=== PATIENT | male | born 1985 | race Caucasian/White ===

== ENCOUNTER 2021-10-29 13:09 | Emergency (ER) | payer OTHER, SELFPAY ==
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
[2021-10-29 13:12] VITALS: BP 149/86; PULSE 89; RESP 16; TEMP 36.7; O2SAT 97
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
== END 2021-10-29 15:45 | disposition home or self-care (01) ==
PROVIDERS: Emergency Provider Nurse Practitioner Family
DX: S01.511A Laceration without foreign body of lip, initial encounter (principal); S61.214A Laceration without foreign body of right ring finger without damage to nail, initial encounter; Z87.442 Personal history of urinary calculi; V49.40XA Driver injured in collision with unspecified motor vehicles in traffic accident, initial encounter
CPT/HCPCS: 12001; 70450; 70486; 72125; 73130; 99284

== ENCOUNTER 2024-05-04 21:25 | Emergency (ER) | payer OTHER, SELFPAY ==
[2024-05-04] VITALS (16 sets, daily range): BP systolic 136–150; BP diastolic 85–101; PULSE 73; RESP 14; TEMP 36.8; O2SAT 93–100
--- NOTE | ~2024-05-04 | CT_ITS ---
EXAMINATION: CT abdomen pelvis wo con DATE: 05/04/2024 22:04 INDICATION: L flank pain, hx stones TECHNIQUE: Computed tomography (CT) of the abdomen and pelvis was performed without intravenous contr ast. Automated exposure control and iterative reconstruction technique were employed. The dose-length product was 462.91 mGy-cm. COMPARISON: None. FINDINGS: Lower thorax: Mild bilateral gynecomastia. Liver: Normal. Biliary/Gallbladder: Gallbladder is normal. No bile duct dilation. Pancreas: No mass or duct dilation. Spleen: Normal. Adrenals:No mass. Kidneys: 7 mm calcification at the left UPJ. Multiple bilateral nonobstructing renal calculi. No susp icious mass. Mild left pelviectasis and caliectasis GI tract: No small or large bowel dilation. Normal appendix. Mesentery/Peritoneum: No ascites, mass, or free air. Retroperitoneum: No mass. Pelvis: Prostatic calcifications. Empty urinary bladder.. Soft Tissues: Soft tissues and body wall unremarkable. Bones: No acute osseous finding. IMPRESSION: 7 mm left UPJ stone causing mild obstructive uropathy. Reviewed, dictated and finalized at location K. ASSOCIATE
--- NOTE | ~2024-05-04 | XR_ITS ---
EXAM: XR abdomen/kub 1V DATE: 05/04/2024 22:29 HISTORY: 7mm upj stone . COMPARISON: CT abdomen pelvis, same date. FINDINGS: Clear lung bases. Normal bowel gas pattern. No organomegaly. 7 mm calcification projecting over the region of the left UPJ at the level of L2. Regional bones and soft tissues normal for age. IMPRESSION: 7 mm left UPJ stone. Reviewed, dictated and finalized at location K. ACE SUPPLY BREATHING APPARATUS IMPRESSION: 7 mm left UPJ stone.
--- OUTSIDE RECORDS SUMMARY | 2024-05-04 21:27 | XMS_ITS | Patient Health Record ---
Author Organization [facility] Address [address] [place] [address] Care Team Providers Care Assistant Women'S Tennis Coach Name Role Phone Halley, Candy Unavailable [phone] Reason For Referral No Information Medications Medication SIG (Take, Route, Frequency, Duration) Notes Start Date End Date Status Ketoconazole 2 % 5 ml Externally twic e weekly for 28 day(s) 08/01/2020 Active Montelukast Sodium 10 MG 1 tablet Orally Once a day for 90 days 11/17/2020 Active Phentermine HCl 37.5 MG TAKE ONE TABLET BY MOUTH ONE TIME DAILY for 30 11/21/2020 Active Immunizations Vaccine Route Administration Date Status Comme nts Flulaval quadrivalent PFS PEDS IM Intramuscular 01/06/2020 Administered Flulaval quadrivalent PFS PEDS IM Intramuscular 01/14/2021 Administered Patient tolerated well.Nelia Villavicencio 01/21/2021 11:18:00 AM > Tubersol Mantoux ID Intradermal 03/02/2020 Administered Tubersol Mantoux ID Intradermal 03/16/2020 Administered pt . tolerated well. To be read on 03/18/2020 Plan Of Treatment No Information Insurance Providers Payer Name Payer Address Payer Phone Subscriber Number Group Number Insured Name Patient Relationship to Insured Coverage Start Date Coverage End Date [facility] [address] [place] [phone] [id number] Roger Bledsoe Self - patient is the insured Medical (General) History Surgical History Surgery Date(Month/Year) vasectomy pilonidal cystectomy ,
--- OUTSIDE RECORDS SUMMARY | 2024-05-04 21:27 | XMS_ITS | Clinical Summary ---
Author Organization [facility] Address [address] [place] [address] Care Team Providers Care Fur Repair Inspector Name Role Phone Unavailable Primary Care Provider Unavailabl e Source Comments [facility],non-owned Affiliates and Associated Physician Practices is amultiple site organization consisting of ambulatory clinics and hospital sitesin [place], [place], [place] and [place]. This disclosure is being madepursuant to the Care Everywhere program and may not contain all information available regarding this patient. Last updated 17.[facility] ([employer]) Social History Tobacco Use Types Packs/Day Years Used Date Smoking Tobacco: Never Assessed Sex and Gender Information Value Date Recorded Sex Assigned at Not on file Gender Identity Not on file Sexual Orientation Not on file Plan of Treatment Health Maintenance Due Date Last Done Comments HIV SCREENING 2000 HEPATITIS C SCREENING 07/01/2003 DTAP/TDAP/TD VACCINES (1 - Tdap) 2004 HEPATITIS B VACCINE (1 of 3 - 19+ 3-dose series) 2004 COVID-19 VACCINE ( - 2023-2 5 season) 2023 INFLUENZA VACCINE (#1) 2023 DEPRESSION SCREENING 03/17/2024 ZOSTER VACCINE (1 of 2) 07/06/2035 HIB VACCINE Aged Out No longer eligi ble based on patient's age to complete this topic HPV VACCINE Aged Out No longer eligi ble based on patient's age to complete this topic MENINGOCOCCAL (Group B) VACCINE Aged Out No longer eligible based on patient's age to complete this topic MENINGOCOCCAL VACCINE Aged Out No chuck jerald eligible based on patient's age to complete this topic PNEUMOCOCCAL VACCINE Aged Out No long er eligible based on patient's age to complete this topic
--- OUTSIDE RECORDS SUMMARY | 2024-05-04 21:27 | XMS_ITS | Patient Health Summary ---
Author Organization [facility] Address [address] [place] [address] Care Team Providers Care Powder Coat Painter Name Role Phone Unavailable Primary Care Provider Unavailabl e Note from [facility],non-owned Affiliates and Associated Physician Practices is amultiple site organization consisting of ambulatory clinics and hospital sitesin [place], [place], [place] and [place]. This disclosure is being madepursuant to the Care Everywhere program and may not contain all information available regarding this patient. Last updated 17.[facility] Social History Tobacco Use Types Packs/Day Years Used Date Smoking Tobacco: Never Assessed Sex and Gender Information Value Date Recorded Sex Assigned at Not on file Gender Identity Not on file Sexual Orientation Not on file Procedures * GROSS + MICRO EXAM(Performed 10/06/2007) * GROSS + MICRO EXAM(Performed 07/18/2005) Results * GROSS + MICRO EXAM (10/06/2007 8:10 AM CDT) Only the most recent of2 resultswithin the time period is included. Result CASE NUMBER [id number] Comment: ORDERING PHYSICIAN BART BISWAS SPECIMEN TYPE Pilonidal Cyst *CLINICAL HISTORY A 22 year old male presented with a pilonidal cyst underwent excision. SPECIMEN SOURCE Pilonidal cyst. GROSS DESCRIPTION The specimen is received in one part. Received in formalin, labeled with the patient's identification, and designated pilonidal cyst is a rubbery fragment composed of an ellipse of white skin (2.4 x 0.8 cm) and underlying, dense subcutaneous tissue up to 1.2 cm in thickness. Towards the edge of the ellipse, there is a 0.3 cm sinus. The cut surface of the subcutaneous tissue appears white- moreno. Serially sectioning reveals a red-brown, granular focus approaching to the deep cut surface. A member services representative portion is submitted in cassettes A1 and A2. HC/lw GROSSED BY CHAY CLAY M.D. *MICROSCOPIC EXAM Sections show a cystic area in the deep dermis lined by granulation tissue with acute and chronic inflammatory infiltrates. Multiple foreign body giant cells and hair shafts are present. The overlying epidermis appears acanthotic with parakeratosis. The features are those of a pilonidal cyst. READ BY CHAY CLAY M.D. DIAGNOSIS SKIN AND SUBCUTANEOUS TISSUE, SACRAL AREA, EXCISION -PILONIDAL CYST. RELEASED BY CHAY CLAY MISCELLANEOUS SAMPLES / Unknown 10/06/2007 8:10 AM CDT 10/06/2007 12:29 PM CDT Historical Provider LAB - PATHOLOGY/C YTOLOGY ORDERABLES
--- OUTSIDE RECORDS SUMMARY | 2024-05-04 21:27 | XMS_ITS | Referral Summary ---
Author Organization [facility] Address [address] [place] [address] Care Team Providers Care Lvn Home Health Name Role Phone Unavailable Primary Care Provider Unavailabl e Source Comments [facility],non-owned Affiliates and Associated Physician Practices is amultiple site organization consisting of ambulatory clinics and hospital sitesin [place], [place], [place] and [place]. This disclosure is being madepursuant to the Care Everywhere program and may not contain all information available regarding this patient. Last updated 17.[facility] Social History Tobacco Use Types Packs/Day Years Used Date Smoking Tobacco: Never Assessed Sex and Gender Information Value Date Recorded Sex Assigned at Not on file Gender Identity Not on file Sexual Orientation Not on file Plan of Treatment Not on file
--- OUTSIDE RECORDS SUMMARY | 2024-05-04 21:27 | XMS_ITS | Referral Summary ---
Author Organization [facility] Address [address] [place] [address] Care Team Providers Care Kosher Sealer Name Role Phone Maia Mendoza TREADLE CUT OFF SAW OPERATOR Unavailable [phone] Maia Mendoza NP Primary Care Provider [phone] Allergies No known active allergies Medications pantoprazole DR (PROTONIX) 40 mg EC tablet Take 1 tablet (40 mg total) by mouth daily 11/19/2022 Active sucralfate (CARAFATE) 1 gram tablet Take 1 tablet (1 g total) by mouth 4 (four) times a day 11/19/2022 Active Active Problems No known active problems Social History Tobacco Use Types Packs/Day Years Used Date Smoking Tobacco: Never Smokeless Tobacco: Never Tobacco Cessation:Counseling Given: Not Answered Personal Safety Answer Date Recorded Getting School Help Needed Not on file 02/25 Sex and Gender Information Value Date Recorded Sex Assigned at Not on file Legal Sex Male 12:16 PM CDT Gender Identity Not on file Sexual Orientation Not on file Plan of Treatment Not on file Insurance [facility] Care Teams Kosher Sealer Relationship Specialty Start Date End Date Maia Mendoza NP PCP - General Family Medicine 12/19/22 Maia Mendoza NP Nurse Practitioner Family Medicine 11/13/22
--- OUTSIDE RECORDS SUMMARY | 2024-05-04 21:27 | XMS_ITS | Clinical Summary ---
Author Organization [facility] Address [address] [place] [address] Care Team Providers Care Bmx Rider Name Role Phone Maia Mendoza METALWORKING SPECIALIST Unavailable [phone] Maia Mendoza NP Primary Care Provider [phone] Allergies No known active allergies Medications pantoprazole [...] on file Sexual Orientation Not on file Obstetrics History Plan of Treatment Health Maintenance Due Date Last Done Comments Depression Screening 1985 Hepatitis C Screening 1985 Varicella Vaccines (1 of 2 - 13+ 2-dose series) 1998 Regular Well Visit/Exam 18-64 07/06/2003 Influenza Vaccine (#1) 2023 12/17/2022, 2021 DTaP/Tdap/Td Vaccine (8 - Td or Tdap) 07/21/2031 07/20/2021, 12/17/2010, 06/26/1999, Additional history exists HPV Vaccines Aged Out No longer eligi ble based on patient's age to complete this topic Pneumococcal vaccine <65 Aged Out No longer eligible based on patient's age to complete this topic Insurance [facility] H[facility]/PPO Address: [place] [id number] Care Teams Bmx Rider Relationship Specialty Start Date End Date Maia Mendoza NP PCP - General Family Medicine 12/19/22 Maia Mendoza NP Nurse Practitioner Family Medicine 11/13/22
--- NOTE | 2024-05-04 21:46 | ED_ITS ---
HPI - Abdominal Pain General Chief Complaint: Abdominal Pain Stated Complaint: passing kidney stone Time Seen by Provider: 05/04/24 21:36 Source: patient Mode of arrival: ambulatory Limitations: no limitations History of Present Illness HPI narrative: Patient is a 38-year-old male who presents to the ED with report of left flank pain. Patient reports long history of kidney stones. States he has had pain throughout his left flank, radiating around to his L lower abdomen and occasionally into L testicle. Pain has been intermittent for the past 4 days. States pain has been more severe today. Feels similar to previous kidney stones. Has taken acetaminophen, ibuprofen, aleve today w/o improvement. Denies dysuria hematuria. Reports nausea, denies vomiting. Denies fevers. Hx lithotripsy 2019 while living in [place]. Related Data Home Medications ?Medication ?Instructions ?Recorded ?Confirmed ?Last Taken ?Type fexofenadine 180 mg tablet 180 mg PO DAILY 06/26/21 06/26/21 Unknown History montelukast 10 mg tablet 10 mg PO QHS 06/26/21 06/26/21 Unknown History Allergies Allergy/AdvReac Type Severity Reaction Status Date / Time No Known Allergies Allergy Verified 05/04/24 21:25 Review of Systems 2 Review of Systems: All systems reviewed & are unremarkable except as noted in HPI. All systems reviewed & are unremarkable except as noted in HPI and below PMFSH Past Medical History Medical History Borderline hypertension improved with weight loss, diet and exercise. Seasonal allergies Nephrolithiasis History of verrucae (wart) excision (~2006) Surgical History Surgical History H/O vasectomy (~2009) History of lithotripsy (~2019) History of excision of pilonidal cyst (~2008) Family History Family History Father Hypertension Skin cancer (melanoma) Mother Hypertension Grandparent Alcohol abuse Cerebrovascular accident Breast cancer Social History Social History Social History: Lives with family (, 2 children) Smoking status: Never smoker Alcohol intake: current Alcohol use details: rarely Substance use: never Substance use type: does not use Living arrangements: with family Occupation/Education: occupation Gender identity (if verbalized by the patient): Male Sexual Orientation (if Verbalized by the Patient): Straight or Heterosexual Agree to blood products: Yes Exam 2 Narrative: GENERAL: Mildly uncomfortable appearing, well-nourished, non-toxic, in no acute distress. HEAD: Normocephalic, atraumatic. RESPIRATORY: Airway patent, respirations nonlabored. Clear to auscultation bilaterally, no rales, rhonchi, wheezing. CARDIOVASCULAR: Regular rate and rhythm without murmurs, rubs, or gallops. ABDOMINAL: Soft, tenderness in left sided abdomen, nondistended. Normoactive BS. +CVA tenderness on L MUSCULOSKELETAL: Moves all extremities. No gross deformities. SKIN: Warm, dry, normal color. NEURO: A&O X3. Speech clear. PSYCHIATRIC: Appropriate mood and affect. Normal interaction. Course Vital Signs Vital signs: Vital Signs Temperature 98.3 F 05/04/24 21:37 Pulse Rate 73 05/04/24 21:37 Respiratory Rate 14 05/04/24 21:37 Blood Pressure 150/101 H 05/04/24 21:37 Pulse Oximetry 99 05/04/24 21:37 Temperature 98.3 F 05/04/24 21:37 Pulse Rate 73 05/04/24 21:37 Respiratory Rate 14 05/04/24 21:37 Blood Pressure 139/87 05/04/24 23:46 Pulse Oximetry 98 05/04/24 23:46 MDM - Abdominal Pain MDM Narrative Medical decision making narrative: Patient presented to ED with left flank and abdominal pain, long history of kidney stones. States pain feels similar. Vital signs are stable upon arrival. Patient is afebrile here. Laboratory studies are unremarkable. No leukocytosis. Stable kidney function. Urine with gross hematuria, no signs of infection. CT abdomen pelvis obtained and showing 7 mm left UPJ stone. Mild obstructive uropathy. Consistent with clinical picture. KUB obtained. Discussed lab and imaging findings with patient. He is still having moderate pain. Will give additional pain medicine. Will discuss with urology. Discussed case with Dr. Mojica, urology, advised patient is not a candidate for shockwave lithotripsy within 1 week of taking NSAIDs. Patient did take Aleve and ibuprofen today. Advised patient can be admitted for stent placement likely tomorrow with interval definitive stent management, otherwise can d/c home with pain medication and f/u as outpatient for further care. Discussed options with patient. Patient states pain is tolerable at this time. He does feel comfortable going home. Will prescribe oxycodone, flomax, zofran for home. Advised to continue tylenol, avoid further NSAIDs. Given office number for Urology. Advised patient to contact office tomorrow to make follow-up appointment. Given strict return precautions should symptoms worsen or he develops fevers. Patient in agreement with plan. Discharged in stable condition. Medical Records Attestation: I reviewed the patient's medical records. Lab Data Attestation: I reviewed the patient's lab results. 05/04/24 21:41 05/04/24 21:41 Labs: Lab Results 05/04/24 05/04/24 Range/Units 21:36 21:41 WBC 9.6 (4.5-10.0) K/mm3 RBC 5.25 (4.6-6.20) M/mm3 Hgb 16.4 (14.0-18.0) g/dL Hct 47.8 (42.0-52.0) % MCV 91.0 (80-100) fl MCH 31.2 (26-34) pg MCHC 34.3 (32-36) g/dl RDW 12.1 (11.5-14.5) % Plt Count 206 (150-375) k/mm3 MPV 9.3 (7.4-10.4) fl Immature Gran % (Auto) 0.6 H (0-0.5) % Neut % (Auto) 61.2 (45.5-73.1) % Lymph % (Auto) 29.1 (18.3-44.2) % Mesa % (Auto) 6.5 (2.6-8.5) % Eos % (Auto) 2.2 (0-4.4) % Baso % (Auto) 0.4 (0.2-1.2) % Lymph # (Auto) 2.78 (0.9-3.2) K/mm3 Mesa # (Auto) 0.6 (0.1-0.6) K/mm3 Eos # (Auto) 0.2 (0-0.3) K/mm3 Baso # (Auto) 0.0 (0.0-0.1) K/mm3 Abs Immat Gran (auto) 0.06 H (0.00-0.031) K/mm3 Absolute Neuts (auto) 5.8 (1.3-6.7) K/mm3 Absolute Nucleated RBC 0.000 (0.0-0.012) K/mm3 Nucleated RBC % 0.0 (0.0-0.2) % Sodium 142 (137-145) mmol/L Potassium 4.1 (3.4-5.0) mmol/L Chloride 102 (98-107) mmol/L Carbon Dioxide 30 (22-30) mmol/L Anion Gap 10 (4-12) mmol/L BUN 17 (9-20) mg/dL Creatinine 1.11 (0.7-1.3) mg/dL Estim Creat Clear Calc 78 ml/min Estimated GFR > 60 (59 - ) Glucose 100 (65-110) mg/dL Calcium 9.7 (8.4-10.2) mg/dL Total Bilirubin 0.9 (0.2-1.3) mg/dL AST 48 (17-59) U/L ALT 78 H (6-50) U/L Alkaline Phosphatase 68 (38-126) U/L Total Protein 8.0 (6.3-8.2) g/dL Albumin 4.5 (3.5-5.1) g/dL Urine Color Yellow (Yellow) Urine Appearance Cloudy H (Clear) Urine pH 6.5 (5.0-9.0) Ur Specific [place] 1.027 (1.001-1.035) Urine Protein Trace (Negative) mg/dL Urine Glucose (UA) Negative (Negative) mg/dL Urine Ketones Negative (Negative) mg/dL Ur Blood (Man) 2+ H (Negative) Urine Nitrate Negative (Negative) Urine Bilirubin Negative (Negative) Urine Urobilinogen 1.0 (<2.0) mg/dL Leukocyte Esterase Rfl Negative (Negative) GABO/UL Urine RBC 51-100 H (0-2) /hpf Urine WBC 0-5 (0-3) /hpf Ur Squamous Epith Cells None seen (Few) /hpf Urine Bacteria None seen /hpf Urine Casts 0-2 Imaging Data Attestation: I personally reviewed and interpreted this imaging study as follows: Radiologist's impression: ITS Impressions Abdomen/Pelvis CT 05/04/24 22:14 IMPRESSION: 7 mm left UPJ stone causing mild obstructive uropathy. Abdomen X-Ray 05/04/24 22:34 IMPRESSION: 7 mm left UPJ stone. Discharge Plan Discharge Clinical Impression: Calculus of proximal left ureter Patient Disposition: Home, Self-Care Condition: Stable Instructions: Antibiotic Form, Kidney Stones (ED) Additional Instructions: Call Urology office tomorrow to make follow-up appointment for further management of stone. [phone] : outpatient line for kidney stone triage Return to the ED if you experience worsening or severe pain, difficulty urinating, fevers, unable to keep down food or drink, or any other symptoms of concern. Patient Language: Ukrainian Prescriptions: New tamsulosin [Flomax] 0.4 mg capsule 0.4 mg PO DAILY Qty: 14 0RF ondansetron 4 mg tablet,disintegrating 4 mg PO Q8H PRN (Reason: nausea and vomiting) Qty: 15 0RF oxycodone 5 mg tablet 5 mg PO Q6H PRN (Reason: pain) Qty: 20 0RF No Action montelukast 10 mg tablet 10 mg PO QHS fexofenadine 180 mg tablet 180 mg PO DAILY cephalexin 500 mg capsule 500 mg PO Q12H 7 Days Qty: 14 0RF Follow-up/Referrals: Julio C Mojica MD [Physician] - (UROLOGY) Bradley Perez MD [Physician] - (UROLOGY) PHYSICIAN NOT ON STAFF,NONSTAFF [Non-Staff] - Shankar Love MD [Physician] - (UROLOGY) Time of Disposition: 00:00
--- OUTSIDE RECORDS SUMMARY | 2024-05-04 21:50 | XMS_ITS | Clinical Summary ---
Author Organization [facility] Address [address] [place] [address] Care Team Providers Care Ward Nurse Name Role Phone Unavailable Primary Care Provider Unavailabl e Source Comments [facility],non-owned Affiliates and Associated Physician Practices is amultiple site organization consisting of ambulatory clinics and hospital sitesin [place], [place], [place] and [place]. This disclosure is being madepursuant to the Care Everywhere program and may not contain all information available regarding this patient. Last updated 17.[facility] [place] Social History Tobacco Use Types Packs/Day Years [...]
--- OUTSIDE RECORDS SUMMARY | 2024-05-04 21:50 | XMS_ITS | Referral Summary ---
Author Organization [facility] Address [address] [place] [address] Care Team Providers Care Manager Product Support Name Role Phone Maia Mendoza RECTIFYING ATTENDANT Unavailable [phone] Maia Mendoza NP Primary Care Provider [phone] Allergies No known active allergies Medications pantoprazole [...] Plan of Treatment Not on file Insurance [facility] Care Teams Manager Product Support Relationship Specialty Start Date End Date Maia Mendoza NP PCP - General Family Medicine 12/19/22 Maia Mendoza NP Nurse Practitioner Family Medicine 11/13/22
--- OUTSIDE RECORDS SUMMARY | 2024-05-04 21:50 | XMS_ITS | Referral Summary ---
Author Organization [facility] Address [address] [place] [address] Care Team Providers Care Parachute Panel Joiner Name Role Phone Unavailable Primary Care Provider Unavailabl e Source Comments [facility],non-owned Affiliates and Associated Physician Practices is amultiple site organization consisting of ambulatory clinics and hospital sitesin [place], [place], [place] and [place]. This disclosure is being madepursuant to the Care Everywhere program and may not contain all information available regarding this patient. Last updated 17.[facility] Social History Tobacco Use Types Packs/Day Years Used Date Smoking Tobacco: Never Assessed Sex and Gender Information Value Date Recorded Sex Assigned at Not on file Gender Identity Not on file Sexual Orientation Not on file Plan of Treatment Not on file
--- OUTSIDE RECORDS SUMMARY | 2024-05-04 21:50 | XMS_ITS | Patient Health Summary ---
Author Organization [facility] Address [address] [place] [address] Care Team Providers Care Weed Burner Name Role Phone Unavailable Primary Care Provider Unavailabl e Note from [facility],non-owned Affiliates and Associated Physician Practices is amultiple site organization consisting of ambulatory clinics and hospital sitesin [place], [place], [place] and [place]. This disclosure is being madepursuant to the Care Everywhere program and may not contain all information available regarding this patient. Last updated 17.[facility] Social History Tobacco Use Types Packs/Day [...] approaching to the deep cut surface. A inbound sales representative portion is submitted in cassettes A1 [...]
--- OUTSIDE RECORDS SUMMARY | 2024-05-04 21:50 | XMS_ITS | Clinical Summary ---
Author Organization [facility] Address [address] [place] [address] Care Team Providers Care Automobile Accessories Installer Name Role Phone Maia Mendoza WORK FORCE ADVISOR Unavailable [phone] Maia Mendoza NP Primary Care Provider Allergies No known active allergies Medications pantoprazole [...] patient's age to complete this topic Insurance [facility] Member Subscriber Plan / Payer (Ef fective 2021-Present) Name:Ginette Roger Relation to Subscriber:Self Name:Roger Peng Payer ID:[id number] (NAIC) Type:[facility] HMO/PPO Address: [place] [id number] Care Teams Automobile Accessories Installer Relationship Specialty Start Date End Date Maia Mendoza NP PCP - General Family Medicine 12/19/22 Maia Mendoza NP Nurse Practitioner Family Medicine 11/13/22
[2024-05-04 21:51] LABS: Basophils Percent Auto 0.4 % (0.2-1.2); Eosinophils Absolute Auto 0.2 K/mm3 (0-0.3); Eosinophils Percent Auto 2.2 % (0-4.4); Hematocrit 47.8 % (42.0-52.0); Hemoglobin 16.4 g/dL (14.0-18.0); Immature Granulocyte Absolute 0.06 K/mm3 (0.00-0.031); Immature Granulocyte Percent A 0.6 % (0-0.5); Lymphocytes Absolute Auto 2.78 K/mm3 (0.9-3.2); Lymphocytes Percent Auto 29.1 % (18.3-44.2); Mean Corpuscular HGB Conc 34.3 g/dl (32-36); Mean Corpuscular Hemoglobin 31.2 pg (26-34); Mean Platelet Volume 9.3 fl (7.4-10.4); Monocytes Absolute Auto 0.6 K/mm3 (0.1-0.6); Monocytes Percent Auto 6.5 % (2.6-8.5); Neutrophils Absolute Auto 5.8 K/mm3 (1.3-6.7); Neutrophils Percent Auto 61.2 % (45.5-73.1); Platelet Count Result 206 k/mm3 (150-375); Red Blood Count 5.25 M/mm3 (4.6-6.20); Red Cell Distribution Width 12.1 % (11.5-14.5); White Blood Count 9.6 K/mm3 (4.5-10.0)
[2024-05-04 21:52] LABS: Add Urine Microscopic? YES; Appearance Urine Cloudy (Clear); Bacteria Urine None Seen /hpf; Bilirubin Urine Negative (Negative); Blood Urine 2+ (Negative); Color Urine Yellow (Yellow); Glucose Urine UA Negative (Negative); Ketones Urine Negative (Negative); Leukocyte Esterase Ur Negative LEU/UL (Negative); Nitrate Urine Negative (Negative); Non Pathogenic Casts 0-2; Protein Urine Trace mg/dL (Negative); RBC Urine 51-100 /hpf (0-2); Specific Grav Ur 1.027 (1.001-1.035); Squamous Epithelial Cell Urine None Seen /hpf (Few); WBC Urine 0-5 /hpf (0-3); pH Urine 6.5 (5.0-9.0)
[2024-05-04] MEDS: ONDANSETRON INJ 4 MG/2 ML VIAL IV PUSH (21:56)
[2024-05-04] MEDS: SODIUM CHLORIDE 0.9% IV 1,000 ML 999 ML IV CONT (21:56)
[2024-05-04] MEDS: MORPHINE SULFATE (*CRX) 4 MG/ML INJ IV PUSH (21:56)
[2024-05-04 22:01] LABS: Alanine Aminotransferase 78 U/L (6-50); Albumin Level 4.5 g/dL (3.5-5.1); Alkaline Phosphatase 68 U/L (38-126); Anion Gap 10 mmol/L (4-12); Aspartate Amino Transferase 48 U/L (17-59); Bilirubin,Total 0.9 mg/dL (0.2-1.3); Blood Urea Nitrogen 17 mg/dL (9-20); Calcium 9.7 mg/dL (8.4-10.2); Carbon Dioxide 30 mmol/L (22-30); Chloride 102 mmol/L (98-107); Estimated CRCL calculation 78 ml/min; Estimated Glomerular Filt Rate > 60; Glucose 100 mg/dL (65-110); Potassium 4.1 mmol/L (3.4-5.0); Sodium 142 mmol/L (137-145)
[2024-05-04] MEDS: TAMSULOSIN HCL 0.4 MG CAPSULE PO (23:11)
[2024-05-05] MEDS: oxyCODONE HCL (*CRX) 5 MG TAB IR PO (00:11)
== END 2024-05-05 00:14 | disposition home or self-care (01) ==
PROVIDERS: Emergency Medicine; Emergency Provider Physician Assistant
DX: R10.9 Unspecified abdominal pain (principal); N20.1 Calculus of ureter; Z87.442 Personal history of urinary calculi
CPT/HCPCS: 36415; 74018; 74176; 80053; 81001; 85025; 96361; 96374; 96375; 96376; 99284; A9270; J2270; J2405; J7030

== ENCOUNTER 2024-05-06 12:27 | Outpatient (CLI) | payer OTHER, SELFPAY ==
--- OUTSIDE RECORDS SUMMARY | 2024-05-06 12:32 | XMS_ITS | Clinical Summary ---
Author Organization [facility] Address [address] [place] [address] Care Team Providers Care Reaming Machine Operator For Plastic Name Role Phone Unavailable Primary Care Provider Unavailabl e Source Comments [facility],non-owned Affiliates and Associated Physician Practices is amultiple site organization consisting of ambulatory clinics and hospital sitesin [place], [place], [place] and [place]. This disclosure is being madepursuant to the Care Everywhere program and may not contain all information available regarding this patient. Last updated 17.[facility] [employer] Social History Tobacco Use Types Packs/Day Years [...]
--- OUTSIDE RECORDS SUMMARY | 2024-05-06 12:32 | XMS_ITS | Patient Health Record ---
Author Organization [facility] Address [address] [place] [address] Care Team Providers Care Metalworker Name Role Phone Halley, Candy Unavailable [phone] Reason For Referral No Information Medications Medication [...] Insured Coverage Start Date Coverage End Date [facility] [address] [place] [phone] [id number] Roger Bledsoe Self - patient is the insured Medical (General) History Surgical History Surgery Date(Month/Year) vasectomy pilonidal cystectomy ,
--- OUTSIDE RECORDS SUMMARY | 2024-05-06 12:32 | XMS_ITS | Patient Health Summary ---
Author Organization [facility] Address [address] [place] [address] Care Team Providers Care Windscreen Fitter Name Role Phone Unavailable Primary Care Provider Unavailabl e Note from [facility],non-owned Affiliates and Associated Physician Practices is amultiple site organization consisting of ambulatory clinics and hospital sitesin [place], [place], [place] and [place]. This disclosure is being madepursuant to the Care Everywhere program and may not contain all information available regarding this patient. Last updated 17.[facility] Social History Tobacco Use Types Packs/Day [...] approaching to the deep cut surface. A retail field representative portion is submitted in cassettes A1 [...]
--- OUTSIDE RECORDS SUMMARY | 2024-05-06 12:32 | XMS_ITS | Clinical Summary ---
Author Organization [facility] Address [address] [place] [address] Care Team Providers Care Torch Straightener Name Role Phone Maia Mendoza MELANGEUR OPERATOR Unavailable [phone] Maia Mendoza NP Primary Care Provider [phone] Allergies No known active allergies Medications pantoprazole [...] patient's age to complete this topic Insurance [facility] Member Subscriber Plan / Payer (Ef fective 2021-Present) Name:Ginette Roger Relation to Subscriber:Self Name:Roger Peng Payer ID:[id number] (NAIC) Type:[facility] HMO/PPO Address: [place] [id number] Care Teams Torch Straightener Relationship Specialty Start Date End Date Maia Mendoza NP PCP - General Family Medicine 12/19/22 Maia Mendoza NP Nurse Practitioner Family Medicine 11/13/22
--- OUTSIDE RECORDS SUMMARY | 2024-05-06 12:32 | XMS_ITS | Referral Summary ---
Author Organization [facility] Address [address] [place] [address] Care Team Providers Care Clinical Pharmacy Manager Name Role Phone Maia Mendoza MANAGER BEVERAGE Unavailable [phone] Maia Mendoza NP Primary Care Provider [phone] Allergies No known active allergies Medications pantoprazole [...] Plan of Treatment Not on file Insurance [facility] Care Teams Clinical Pharmacy Manager Relationship Specialty Start Date End Date Maia Mendoza NP PCP - General Family Medicine 12/19/22 Maia Mendoza NP Nurse Practitioner Family Medicine 11/13/22
--- OUTSIDE RECORDS SUMMARY | 2024-05-06 12:32 | XMS_ITS | Referral Summary ---
Author Organization [facility] Address [address] [place] [address] Care Team Providers Care Spaghetti Machine Operator Name Role Phone Unavailable Primary Care Provider Unavailabl e Source Comments [facility],non-owned Affiliates and Associated Physician Practices is amultiple site organization consisting of ambulatory clinics and hospital sitesin [place], [place], [place] and [place]. This disclosure is being madepursuant to the Care Everywhere program and may not contain all information available regarding this patient. Last updated 17.[facility] Social History Tobacco Use Types Packs/Day Years Used Date Smoking Tobacco: Never Assessed Sex and Gender Information Value Date Recorded Sex Assigned at Not on file Gender Identity Not on file Sexual Orientation Not on file Plan of Treatment Not on file
[2024-05-06 13:08] LABS: Partial Thromboplastin Time 26.6 Seconds (22.3-36.8); Prothrombin Time 13.4 Seconds (11.1-14.7)
== END 2024-05-06 12:28 | disposition home or self-care (01) ==
LOC: ANHLAB 12:29
PROVIDERS: PCP Nurse Practitioner Family; Visit Provider Urology
DX: Z01.818 Encounter for other preprocedural examination (principal); N20.0 Calculus of kidney
CPT/HCPCS: 36415; 85610; 85730

== ENCOUNTER 2024-05-07 06:10 | Day surgery (SDC) | payer OTHER, SELFPAY ==
[2024-05-06 09:14] VITALS: BMI 26.8
--- NOTE | 2024-05-06 09:22 | PC.NURSE ---
Report to the Outpatient Waiting Room, entrance under the green pavilion located off [facility], at time _130pm_ on date _[id number]_. Planned Procedure Time: _330pm_.? Time changes happen often and if your time is changed the preop area will call you the afternoon before. - You and your visitor will be asked to self-screen and do not enter if you have any COVID symptoms. Please call surgeon if you need to reschedule. - A mask is optional within the hospital at this time. Patients may have clear liquids (water, carbonated beverages, clear teas, apple juice) until 3 hours prior to surgery with a maximum of 20 ounces. - No food from midnight until time of surgery and no smoking, or chewing tobacco (or any form of nicotine). No chewing gum, candy or mints. Take only the following medications with a SIP of water on the morning of surgery: __Pain or nausea medication if needed.____ DO NOT STOP ANY OF YOUR OTHER PRESCRIPTION MEDICATIONS PRIOR TO SURGERY EXCEPT THE FOLLOWING Hold all vitamins and supplements for 3 days per anesthesiologist. Medications to discontinue per physician ___ Date to take last dose Please no make-up, nail yakut, hairspray, perfume, deodorant, or body powder the day of surgery.? No jewelry (including any body piercings) or valuables the day of surgery, leave them at home.? Please take a shower or bath the night before, or the morning of, surgery with an antibacterial soap.? Wear comfortable, loose fitting clothing.? - Jewelry must be removed prior to entering the operating room.? Rings and piercings that are not removed may be cut off. - The hospital will not accept responsibility for valuables.? - Please leave all valuables, including medications, at home the day of surgery. If you are going home after surgery, a licensed after school driver must drive you home.? - NO public transportation without another adult if you receive anesthesia. - We recommend that an adult stay with you for 24 hours following discharge. - We also recommend that you do not drive, make important decision, drink alcoholic beverages, or take any drugs that were not prescribed by your health care provider for at least 24 hours after your discharge time. Follow any additional instructions given to you from your surgeon. Telephone instructions given to __Jeremy__and asked if any additional questions and then verbalized understanding. Patient advised to call surgeon office or pre surgery nurse liaison [phone] if any additional questions.
[2024-05-07] VITALS (12 sets, daily range): BP systolic 107–139; BP diastolic 66–86; PULSE 61–85; RESP 14–20; TEMP 36.1–36.9; O2SAT 98–100
--- NOTE | ~2024-05-07 | XR_ITS ---
XR abdomen/kub 1V 05/07/2024 12:53 Indication: Preop ESWL. Left renal stone. Procedure: KUB Comparison: 05/04/2024 Findings: Stable position to left UPJ stone. Bowel gas pattern nonobstructive. Moderate colonic fecal loading. No acute osseous abnormality. There is a right pelvic phlebolith. Impression: 1: Stable position to left UPJ stone. Reviewed, dictated and finalized at location L. P BUNCH MAKER Impression: 1: Stable position to left UPJ stone.
--- OUTSIDE RECORDS SUMMARY | 2024-05-07 06:14 | XMS_ITS | Clinical Summary ---
Author Organization [facility] Address [address] [place] [address] Care Team Providers Care Railcar Mechanic Name Role Phone Unavailable Primary Care Provider Unavailabl e Source Comments [facility],non-owned Affiliates and Associated Physician Practices is amultiple site organization consisting of ambulatory clinics and hospital sitesin [place], [place], [place] and [place]. This disclosure is being madepursuant to the Care Everywhere program and may not contain all information available regarding this patient. Last updated 17.[facility] [employer] Social History Tobacco Use Types Packs/Day Years [...]
--- OUTSIDE RECORDS SUMMARY | 2024-05-07 06:14 | XMS_ITS | Patient Health Summary ---
Author Organization [facility] Address [address] [place] [address] Care Team Providers Care Feather Stitcher Name Role Phone Unavailable Primary Care Provider Unavailabl e Note from [facility],non-owned Affiliates and Associated Physician Practices is amultiple site organization consisting of ambulatory clinics and hospital sitesin [place], [place], [place] and [place]. This disclosure is being madepursuant to the Care Everywhere program and may not contain all information available regarding this patient. Last updated 17.[facility] Social History Tobacco Use Types Packs/Day [...] approaching to the deep cut surface. A apprenticeship representative portion is submitted in cassettes A1 [...]
--- OUTSIDE RECORDS SUMMARY | 2024-05-07 06:14 | XMS_ITS | Referral Summary ---
Author Organization [facility] Address [address] [place] [address] Care Team Providers Care Credit Risk Modeler Name Role Phone Maia Mendoza COLORER HIDES AND SKINS Unavailable Maia Mendoza NP Primary Care Provider [phone] Allergies No known active allergies Medications pantoprazole [...] Plan of Treatment Not on file Insurance [facility] Care Teams Credit Risk Modeler Relationship Specialty Start Date End Date Maia Mendoza NP PCP - General Family Medicine 12/19/22 Maia Mendoza NP Nurse Practitioner Family Medicine 11/13/22
--- OUTSIDE RECORDS SUMMARY | 2024-05-07 06:14 | XMS_ITS | Referral Summary ---
Author Organization [facility] Address [address] [place] [address] Care Team Providers Care Furniture Mover Helper Name Role Phone Unavailable Primary Care Provider Unavailabl e Source Comments [facility],non-owned Affiliates and Associated Physician Practices is amultiple site organization consisting of ambulatory clinics and hospital sitesin [place], [place], [place] and [place]. This disclosure is being madepursuant to the Care Everywhere program and may not contain all information available regarding this patient. Last updated 17.[facility] Social History Tobacco Use Types Packs/Day Years Used Date Smoking Tobacco: Never Assessed Sex and Gender Information Value Date Recorded Sex Assigned at Not on file Gender Identity Not on file Sexual Orientation Not on file Plan of Treatment Not on file
--- OUTSIDE RECORDS SUMMARY | 2024-05-07 06:14 | XMS_ITS | Patient Health Record ---
Author Organization [facility] Address [address] [place] [address] Care Team Providers Care Sampler Tester Name Role Phone Halley, Candy Unavailable [phone] Reason For Referral No Information Medications Medication [...] Vaccine Route Administration Date Status Comme nts Tubersol Mantoux ID Intradermal 03/02/2020 Administered Tubersol Mantoux ID Intradermal 03/16/2020 Administered pt . tolerated well. To be read on 03/18/2020 Flulaval quadrivalent PFS PEDS IM Intramuscular 01/06/2020 Administered Flulaval quadrivalent PFS PEDS IM Intramuscular 01/14/2021 Administered Patient tolerated well.Nelia Villavicencio 01/21/2021 11:18:00 AM > Plan Of Treatment No Information Insurance Providers Payer Name Payer Address Payer Phone Subscriber Number Group Number Insured Name Patient Relationship to Insured Coverage Start Date Coverage End Date [facility] [address] [place] [address] [id number] Roger Bledsoe Self - patient is the insured Medical (General) History Surgical History Surgery Date(Month/Year) vasectomy pilonidal cystectomy ,
--- OUTSIDE RECORDS SUMMARY | 2024-05-07 06:14 | XMS_ITS | Clinical Summary ---
Author Organization [facility] Address [address] [place] [address] Care Team Providers Care Hide Handler Name Role Phone Maia Mendoza SCIENCE TECHNICIAN Unavailable [phone] Maia Mendoza NP Primary Care Provider [phone] Allergies No known active allergies Medications pantoprazole [...] patient's age to complete this topic Insurance [facility] Member Subscriber Plan / Payer (Ef fective 2021-Present) Name:Ginette Roger Relation to Subscriber:Self Name:Roger Peng Payer ID:[id number] (NAIC) Type:[facility] H[facility]/PPO Address: [place] [phone] Care Teams Hide Handler Relationship Specialty Start Date End Date Maia Mendoza NP PCP - General Family Medicine 12/19/22 Maia Mendoza NP Nurse Practitioner Family Medicine 11/13/22
--- NOTE | 2024-05-07 06:24 | WPDHPUPDATE1 ---
History and Physical Update Update Date/Time: 05/07/24 06:24 History and Physical has been reviewed, including an updated exam of the patient. There are NO changes in the patient's condition. Risks, benefits, and alternatives have been discussed and questions answered. Patient agrees to proceed with procedure.
[2024-05-07] MEDS: LACTATED RINGERS 1,000 ML 30 ML IV CONT ×2 (13:00→15:54)
--- NOTE | 2024-05-07 13:42 | P.PNAN_ITS ---
Anes - Initial Pre Proc Eval Procedure: Operation Date: 05/07/24 14:30 Proposed Procedures p Left Extracorporeal Shock Wave Lithotripsy - Shankar Love MD Date/Time: 05/07/24 13:42 Surgeon: Shankar Love MD Pre Op Diagnosis: left ureteral stone Patient Data Age: 38 Gender: M Height: 1.73 m Weight: 83.1 kg Last Vital Signs Temp 36.9 C 05/07/24 13:32 Pulse 85 05/07/24 13:32 Resp 16 05/07/24 13:32 BP 139/81 05/07/24 13:32 Pulse Ox 99 05/07/24 13:32 O2 Del Method Room Air 05/07/24 13:32 Allergies Allergy/AdvReac Type Severity Reaction Status Date / Time No Known Allergies Allergy Verified 05/06/24 09:10 Home Medications ?Medication ?Instructions ?Recorded ?Confirmed ?Type ondansetron 4 mg disintegrating 4 mg PO Q8H PRN nausea and 05/04/24 05/06/24 Rx tablet vomiting #15 tabs oxycodone 5 mg tablet 5 mg PO Q6H PRN pain #20 tabs 05/04/24 05/06/24 Rx tamsulosin 0.4 mg capsule (Flomax) 0.4 mg PO DAILY #14 caps 05/04/24 05/06/24 Rx cetirizine 10 mg tablet (24Hour 10 mg PO DAILY PRN allergy symptoms 05/06/24 05/06/24 History Allergy) semaglutide (weight loss) 1 mg/0.5 1.7 mg subcut WEEKLY 05/06/24 05/06/24 History mL subcutaneous pen injector (Wegovy) Patient hx anesthesia problems: none Family hx anesthesia problems: none Results Review: All pre-operative results and documents have been reviewed as part of the pre- operative evaluation. [facility] Past Medical History Medical History Borderline hypertension improved with weight loss, diet and exercise. Seasonal allergies Nephrolithiasis History of verrucae (wart) excision (~2006) Surgical History Surgical History H/O vasectomy (~2009) History of lithotripsy (~2019) History of excision of pilonidal cyst (~2008) Family History Family History Father Hypertension Skin cancer (melanoma) Mother Hypertension Grandparent Alcohol abuse Cerebrovascular accident Breast cancer Social History Social History Social History: Lives with family (, 2 children) Smoking status: Never smoker Alcohol intake: current Alcohol use details: rarely Substance use: never Substance use type: does not use Living arrangements: with family Occupation/Education: occupation Gender identity (if verbalized by the patient): Male Sexual Orientation (if Verbalized by the Patient): Straight or Heterosexual Spiritual care concerns: No Agree to blood products: Yes Anes - Eval Final PreProcedure Day of Procedure 05/07/24 13:42 Patient weight: overweight Heart: regular rate and rhythm Lungs: clear to auscultation Airway: Mallampati scale class II Neurological: alert and oriented Last oral intake: >/= 8 hours ASA classification: II Emergent: no Anesthetic plan: proceed Anesthesia type and monitoring: general LMA and standard monitoring Results Review: All pre-operative results and documents have been reviewed as part of the pre- operative evaluation. Informed Consent: The patient's anesthetic plan and its attendant risks and benefits were discussed with the patient/family/POA. Questions were solicited and answers provided to the satisfaction of the patient/family/POA.
[2024-05-07] MEDS: ceFAZolin 2 GM/D5W 50 ML 2 GM/50 ML BAG IVPB (14:25)
--- NOTE | 2024-05-07 14:42 | W.PM.PROC2 ---
Procedure Note - Detailed Date of Procedure 05/07/24 Pre-op Diagnosis Left ureteral stone Post-op Diagnosis Same Procedure Performed Left ESWL Surgeon Shankar Love MD Anesthesia General Description of Procedure The patient was brought to the operative suite where he was placed in the supine position on the Dornier lithotripsy table. The focal point of the lithotripter was placed at a 7mm left mid-ureteral calculus. A total of 3000 shocks were delivered at a power setting of 1-6. There appeared to be good fragmentation of the stone. The patient tolerated the procedure well and was taken to the recovery room in good condition. Drains No Packing No Pathology None sent Complications No immediate complications
[2024-05-07] MEDS: fentaNYL CITRATE INJ (*CRX) 100 MCG/2 ML VIAL 25 MCG IV PUSH ×4 (16:15→16:37)
[2024-05-07] MEDS: oxyCODONE HCL (*CRX) 5 MG TAB IR PO (16:58)
== END 2024-05-07 17:40 | disposition home or self-care (01) ==
PROVIDERS: PCP Nurse Practitioner Family; Visit Provider Urology
PROC: (CPT 50590; principal; 2024-05-07 14:30)
DX: N20.1 Calculus of ureter (principal); Z79.891 Long term (current) use of opiate analgesic; Z79.85 Long-term (current) use of injectable non-insulin antidiabetic drugs; Z98.890 Other specified postprocedural states; Z84.0 Family history of diseases of the skin and subcutaneous tissue; Z80.3 Family history of malignant neoplasm of breast; Z82.49 Family history of ischemic heart disease and other diseases of the circulatory system
CPT/HCPCS: 50590; 36415; 74018; 85610; 85730; A9270; J0690; J1100; J2250; J2405; J2704; J3010; J7120

== ENCOUNTER 2024-05-17 09:53 | Outpatient (CLI) | payer OTHER, SELFPAY | END 2024-05-17 09:54 | disposition home or self-care (01) | PROVIDERS: PCP Urology; Visit Provider Urology | DX: N20.1 Calculus of ureter (principal) | CPT/HCPCS: 74018 ==

== ENCOUNTER 2024-06-03 09:06 | Outpatient (CLI) | payer OTHER, SELFPAY ==
--- OUTSIDE RECORDS SUMMARY | 2024-06-03 09:25 | XMS_ITS | Referral Summary ---
Author Organization [facility] Address [address] [place] [address] Care Team Providers Care Supplemental Manager Name Role Phone Maia Mendoaz DRESSMAKING TEACHER Unavailable [phone] Maia Mendoza NP Primary Care Provider Allergies [...] Plan of Treatment Not on file Insurance [facility] Care Teams Supplemental Manager Relationship Specialty Start Date End Date Maia Mendoza NP PCP - General Family Medicine 12/19/22 Maia Mendoza NP Nurse Practitioner Family Medicine 11/13/22
--- OUTSIDE RECORDS SUMMARY | 2024-06-03 09:25 | XMS_ITS | Clinical Summary ---
Author Organization [facility] Address [address] [place] [address] Care Team Providers Care Corporation Secretary Name Role Phone Unavailable Primary Care Provider Unavailabl e Source Comments [facility],non-owned Affiliates and Associated Physician Practices is amultiple site organization consisting of ambulatory clinics and hospital sitesin [place], [place], [place] and [place]. This disclosure is being madepursuant to the Care Everywhere program and may not contain all information available regarding this patient. Last updated 17.[facility] Social History Tobacco Use Types Packs/Day Years [...] to complete this topic MENINGOCOCCAL (Group B) VACC INE SHARED DECISION-MAKING Aged Out No longer eligibl e based on patient's age to complete this topic MENINGOCOCCAL GROUPS A/C/Y/W VACCINE Aged Out No longer eligible b ased on patient's age to complete this topic PNEUMOCOCCAL VACCINE Aged Out No long er eligible based on patient's age to complete this topic
--- OUTSIDE RECORDS SUMMARY | 2024-06-03 09:25 | XMS_ITS | Patient Health Record ---
Author Organization [facility] [facility] Address [address] [place] [address] Care Team Providers Care Corporate Security Manager Name Role Phone Halley, Candy Unavailable [phone] Reason For Referral No Information Medications Medication [...] Insured Coverage Start Date Coverage End Date [facility] [address] [place] [phone] [id number] Roger Bledsoe Self - patient is the insured Medical (General) History Surgical History Surgery Date(Month/Year) vasectomy pilonidal cystectomy ,
--- OUTSIDE RECORDS SUMMARY | 2024-06-03 09:25 | XMS_ITS | Clinical Summary ---
Author Organization [facility] Address [address] [place] [address] Care Team Providers Care Tobacco Stemmer Name Role Phone Maia Mendoza MATERIALS TECHNICIAN Unavailable [phone] Maia Mendoza NP Primary Care Provider [phone] Allergies No known active allergies Medications pantoprazole [...] 07/21/2031 07/20/2021, 12/17/2010, 06/26/1999, Additional history exists Hepatitis B Screening Completed 06/26/1999 , 01/30/1999, 01/04/1999 HPV Vaccines Aged Out No longer eligi ble based on patient's age to complete this topic Pneumococcal vaccine <65 Aged Out No longer eligible based on patient's age to complete this topic Insurance [facility] Care Teams Tobacco Stemmer Relationship Specialty Start Date End Date Maia Mendoza NP PCP - General Family Medicine 12/19/22 Maia Mendoza NP Nurse Practitioner Family Medicine 11/13/22
[2024-06-03 14:36] LABS: Anion Gap 12 mmol/L (4-12); Blood Urea Nitrogen 12 mg/dL (9-20); Calcium 9.4 mg/dL (8.4-10.2); Carbon Dioxide 27 mmol/L (22-30); Chloride 102 mmol/L (98-107); Estimated Glomerular Filt Rate > 60; Glucose 81 mg/dL (65-110); Potassium 4.1 mmol/L (3.4-5.0); Sodium 141 mmol/L (137-145)
[2024-06-03 16:44] LABS: Parathyroid Intact 37.1 pg/mL (14.5-75.2)
== END 2024-06-03 09:07 | disposition home or self-care (01) ==
LOC: ANHGOSHLAB 09:08
PROVIDERS: PCP Urology; Visit Provider Urology
DX: N20.1 Calculus of ureter (principal)
CPT/HCPCS: 36415; 80048; 83970

== ENCOUNTER 2024-11-25 15:55 | Outpatient (CLI) | payer OTHER, SELFPAY ==
--- NOTE | ~2024-11-25 | XR_ITS ---
EXAM/PROCEDURE: XR abdomen/kub 1V - 11/25/2024 16:10 CDT HISTORY: 39 years old Male with Calculus of ureter, pain x 3 months COMPARISON: None available. TECHNIQUE: AP view(s) of the abdomen. FINDINGS: The bowel gas pattern is normal. There is no evidence for obstruction. No free intraperitoneal air is identified on this supine radiograph. The visualized soft tissue shadows are unremarkable. 0.4 cm hyperdensity in the right ureteropelvic junction. No gross bony abnormalities are seen. Visualized portions of lung bases are clear. IMPRESSION: 0.4 cm hyperdensity in the right ureteropelvic junction. Reviewed, dictated and finalized at location N.
== END 2024-11-25 15:56 | disposition home or self-care (01) ==
PROVIDERS: PCP Urology; Visit Provider Urology
DX: N20.1 Calculus of ureter (principal)
CPT/HCPCS: 74018